=== PATIENT | male | born 1995 | race African-American/Black ===

== ENCOUNTER 2018-02-14 19:56 | Emergency (ER) | payer MEDICAID ==
[~2018-02-14] VITALS: Ht 182.9 cm; Wt 91.0 kg
[2018-02-14] MEDS ORDERED: KETOROLAC 30MG/ML VIAL IV STA (21:09)
[2018-02-14] MEDS ORDERED: SODIUM CHLORIDE 0.9% 1,000 ML IV ONE (21:09)
[2018-02-14 21:31] LABS: BASOPHILS % 0.6 % (0.0-2.0); EOSINOPHILS % 3.4 % (0.0-5.0); HEMATOCRIT. 43.5 % (42.0-52.0); HEMOGLOBIN. 15.2 g/dL (14.0-18.0); LYMPHOCYTES % 43.4 % (20.0-50.0); MEAN CORPUSCULAR HEMOGLOBIN 31.5 pg (28.0-32.0); MEAN CORPUSCULAR VOLUME 90.1 fL (80.0-94.0); MEAN PLATELET VOLUME 7.4 fl (7.4-10.4); MONOCYTES % 12.5 % (2.0-8.0); NEUTROPHILS % 40.1 % (40.0-76.0); PLATELET 271 x1000/uL (130-400); RED BLOOD CELL COUNT 4.82 mill/uL (4.7-6.1); RED CELL DISTRIBUTION WIDTH 13.1 % (11.6-14.6)
[2018-02-14 21:35] LABS: CHLORIDE 106 mEq/L (98-107)
[2018-02-14 22:21] LABS: CLARITY URINE CLEAR (CLEAR); COLOR URINE YELLOW (YELLOW); KETONES URINE NEGATIVE (NEGATIVE); LEUKOCYTE ESTERASE URINE 1+ (NEGATIVE); NITRITE URINE NEGATIVE (NEGATIVE); OCCULT BLOOD URINE NEGATIVE (NEGATIVE); PH URINE 5.5 (4.5-8.0); PROTEIN URINE NEGATIVE (NEGATIVE); SPECIFIC GRAVITY URINE 1.018 (1.005-1.030); UROBILINOGEN URINE 0.2 E.U./dL (0.2-1.0)
[2018-02-15 00:11] VITALS: BP 156/106
== END 2018-02-15 00:14 | disposition home or self-care (01) ==
LOC: ER 19:56
DX: N10 Acute pyelonephritis (principal); R00.1 Bradycardia, unspecified; F17.200 Nicotine dependence, unspecified, uncomplicated; Z98.890 Other specified postprocedural states
CPT/HCPCS: 36415; 71045; 76700; 80053; 81003; 83690; 85025; 93005; 96374; 99285; J1885; J7030; Z7610

== ENCOUNTER 2019-01-31 18:27 | Emergency (ER) | payer SELFPAY ==
[~2019-01-31] VITALS: Ht 177.8 cm; Wt 100.0 kg
[2019-01-31 21:57] VITALS: BP 137/88
== END 2019-01-31 22:01 | disposition home or self-care (01) ==
LOC: ER 18:27
DX: S01.01XA Laceration without foreign body of scalp, initial encounter (principal); F12.10 Cannabis abuse, uncomplicated; Y04.0XXA Assault by unarmed brawl or fight, initial encounter; W22.8XXA Striking against or struck by other objects, initial encounter; Y93.89 Activity, other specified; Y92.013 Bedroom of single-family (private) house as the place of occurrence of the external cause
CPT/HCPCS: 99283; Z7610

== ENCOUNTER 2021-07-16 11:35 | Emergency (ER) | payer MEDICAID ==
[~2021-07-16] VITALS: Ht 180.3 cm; Wt 88.0 kg
[2021-07-16 13:13] VITALS: BP 127/86
== END 2021-07-16 13:16 | disposition home or self-care (01) ==
LOC: ER 11:35
DX: Z13.9 Encounter for screening, unspecified (principal)
CPT/HCPCS: 99281

== ENCOUNTER 2022-03-14 10:08 | Emergency (ER) | payer MEDICAID ==
[~2022-03-14] VITALS: Ht 180.3 cm; Wt 92.0 kg
[2022-03-14 10:21] VITALS: BP 160/108
== END 2022-03-14 12:34 | disposition left against medical advice (07) ==
LOC: ER 10:08
DX: Z53.21 Procedure and treatment not carried out due to patient leaving prior to being seen by health care provider (principal)